=== PATIENT | male | born 1935 | race Caucasian/White ===

== ENCOUNTER 2022-04-20 18:22 | Outpatient (CLI) | payer OTHER | END 2022-04-20 18:23 | disposition critical access hospital (66) | LOC: EMS 18:22 | DX: R53.1 Weakness (principal); R53.83 Other fatigue; R50.9 Fever, unspecified | CPT/HCPCS: A0425; A0427 ==

== ENCOUNTER 2022-04-20 19:16 | Emergency (ER) | payer OTHER ==
[2022-04-20 20:03] LABS: BASOPHILS % (AUTO) 0.5 %; EOSINOPHILS % (AUTO) 0.5 %; HCT - HEMATOCRIT 34.5 % (42.0-52.0); HGB - HEMOGLOBIN 11.5 g/dL (14.0-18.0); LYMPHOCYTES # (AUTO) 0.7 10^3/uL (1.5-3.5); LYMPHOCYTES % (AUTO) 15.2 %; MEAN CORPUSCULAR HEMOGLOBIN 32.6 pg (27.0-31.0); MEAN CORPUSCULAR HGB CONC 33.3 g/dL (32.0-36.0); MEAN CORPUSCULAR VOLUME 97.7 fL (80.0-94.0); MEAN PLATELET VOLUME 10.4 fL (7.4-11.4); MONOCYTES # (AUTO) 0.8 10^3/uL (0.0-1.0); MONOCYTES % (AUTO) 17.9 %; NEUTROPHILS # (AUTO) 2.9 10^3/uL (1.5-6.6); NEUTROPHILS % (AUTO) 65.4 %; PLT - PLATELET COUNT 142 10^3/uL (130-450); RED BLOOD COUNT 3.53 10^6/uL (4.70-6.10); RED CELL DISTRIBUTION WIDTH 13.9 % (12.0-15.0); WHITE BLOOD COUNT 4.4 x10^3/uL (4.8-10.8)
[2022-04-20 20:17] LABS: ALBUMIN 3.4 g/dL (3.2-5.5); ALBUMIN/GLOBULIN RATIO 1.6 (1.0-2.2); BILIRUBIN,TOTAL 0.7 mg/dL (0.2-1.0); CREATININE 1.2 mg/dL (0.6-1.2); POTASSIUM 3.2 mmol/L (3.5-5.0); TOTAL PROTEIN 5.5 g/dL (6.7-8.2)
--- NOTE | 2022-04-20 20:30 | XRAY Report ---
PROCEDURE: Chest 1 View X-Ray INDICATIONS: fever TECHNIQUE: One view of the chest was acquired. COMPARISON: None. FINDINGS: Surgical changes and devices: None. Lungs and pleura: No definite pleural effusions or pneumothorax. The lateral costophrenic angles are incompletely included on the current study. Visualized lungs are clear. Mediastinum: Mediastinal contours appear normal. Heart size is normal. Bones and chest wall: No suspicious bony lesions. Overlying soft tissues appear unremarkable. IMPRESSION: 1. No definite acute cardiopulmonary disease. Reviewed by: Toan Robison MD on 04/20/2022 8:28 PM PDT Approved by: Toan Robison MD on 04/20/2022 8:28 PM PDT Station ID: [id number]
[2022-04-20 20:31] LABS: BILIRUBIN,URINE NEGATIVE (NEGATIVE); GLUCOSE, URINE (UA) NEGATIVE (NEGATIVE); KETONES,URINE (UA) NEGATIVE (NEGATIVE); LEUKOCYTE ESTERASE, URINE NEGATIVE (NEGATIVE); NITRITE,URINE NEGATIVE (NEGATIVE); OCCULT BLOOD,URINE SMALL (NEGATIVE); PROTEIN,URINE NEGATIVE (NEGATIVE); UROBILINOGEN,URINE 0.2 (NORMAL) E.U./dL (NORMAL)
[2022-04-20 20:40] LABS: BACTERIA,URINE None Seen /HPF (None Seen); CLARITY,URINE CLEAR (CLEAR); SQUAMOUS EPITHELIAL CELL,UR NONE SEEN (<= Few); WBC,URINE 0-3 /HPF (0-3)
[2022-04-20] MEDS ORDERED: ACETAMINOPHEN 325 MG TABLET PO STA (20:40)
[2022-04-20] MEDS ORDERED: POTASSIUM CHLORIDE 20 MEQ TABLET PO STA (20:42)
--- NOTE | 2022-04-20 20:54 | ED Physician Documentation ---
History of Present Illness - Stated complaint Stated Complaint: FEVER/CHILLS/FEVER - Chief complaint Chief Complaint: Fever - History obtained from History obtained from: Patient - Additonal information Additional information: Patient is an 86-year-old male with a history of prostate cancer presenting for evaluation of generalized weakness for 2. Patient reports feeling tired and feeling feverish for 2 days.He feels that he has no energy. Per EMS, he was noted to be febrile and he was given a liter of normal saline as well as Motrin. He is not vaccinated for COVID-19. Patient denies known sick contacts. He reports having mild nasal congestion a day or so ago. He denies cough, chest pain, difficulty breathing, abdominal pain, vomiting, diarrhea or dysuria. He is on prednisone and abiraterone for his prostate cancer but is not currently undergoing any treatments.He denies recent travel. Review of Systems Constitutional: reports: Fever Nose: reports: Congestion Throat: denies: Sore throat Cardiac: denies: Chest pain / pressure Respiratory: denies: Dyspnea, Cough GI: denies: Abdominal Pain, Vomiting, Diarrhea : denies: Dysuria Skin: denies: Rash Musculoskeletal: denies: Back pain Neurologic: reports: Generalized weakness. denies: Headache PD PAST MEDICAL HISTORY - Past Medical History Past Medical History: Yes Other Past Medical History: prostate cancer - Past Surgical History Past Surgical History: No - Social History Does the pt smoke?: No Smoking Status: Never smoker PD ED PE NORMAL - General General: Alert and oriented X 3, No acute distress, Well developed/nourished - HEENT HEENT: Atraumatic, Moist mucous membranes, Pharynx benign - Neck Neck: Supple, no meningeal sign - Cardiac Cardiac: RRR, No murmur, Strong equal pulses - Respiratory Respiratory: No respiratory distress, Clear bilaterally - Abdomen Abdomen: Normal bowel sounds, Soft, Non tender, Non distended - Derm Derm: Warm and dry - Extremities Extremities: No edema - Neuro Neuro: Alert and oriented X 3, No motor deficit, Normal speech - Psych Psych: Normal mood Results - Vitals Vitals: Vital Signs - 24 hr 04/20/22 04/20/22 04/20/22 19:24 19:27 19:40 Temperature 39.0 C H 39.0 C H 39.0 C H Heart Rate 68 66 66 Respiratory 18 21 21 Rate Blood Pressure 129/89 H 160/63 H 160/63 H O2 Saturation 95 95 95 04/20/22 04/20/22 04/20/22 20:10 20:30 21:00 Temperature 99.3 C H Heart Rate 63 57 L 66 Respiratory 20 18 16 Rate Blood Pressure 136/68 H 129/63 160/63 H O2 Saturation 93 92 99 04/20/22 04/20/22 21:30 21:46 Temperature 99.3 C H 99.3 C H Heart Rate 66 66 Respiratory 16 16 Rate Blood Pressure 160/63 H 160/63 H O2 Saturation 99 99 Oxygen O2 Source Room air - Labs Labs: Laboratory Tests 04/20/22 04/20/22 04/20/22 19:56 19:56 19:56 WBC 4.4 L RBC 3.53 L Hgb 11.5 L Hct 34.5 L MCV 97.7 H MCH 32.6 H MCHC 33.3 RDW 13.9 Plt Count 142 MPV 10.4 Neut # (Auto) 2.9 Lymph # (Auto) 0.7 L [place] # (Auto) 0.8 Eos # (Auto) 0.0 Baso # (Auto) 0.0 Absolute Nucleated RBC 0.00 Nucleated RBC % 0.0 Sodium 134 L Potassium 3.2 L Chloride 105 Carbon Dioxide 23 Anion Gap 6.0 BUN 19 Creatinine 1.2 Estimated GFR (MDRD) 58 L Glucose 103 H Lactic Acid 0.9 Calcium 8.0 L Total Bilirubin 0.7 AST 24 ALT 20 Alkaline Phosphatase 39 L Total Protein 5.5 L Albumin 3.4 Globulin 2.0 L Albumin/Globulin Ratio 1.6 Urine Color Urine Clarity Urine pH Ur Specific [place] Urine Protein Urine Glucose (UA) Urine Ketones Urine Occult Blood Urine Nitrite Urine Bilirubin Urine Urobilinogen Ur Leukocyte Esterase Urine RBC Urine WBC Ur Squamous Epith Cells Urine Bacteria Urine Culture Comments Nasal Adenovirus (PCR) Nasal B. parapertussis DNA (PCR) Nasal Coronavir 229E PCR Nasal Coronavir HKU1 PCR Nasal Coronavir NL63 PCR Nasal Coronavir OC43 PCR Nasal Enterovir/Rhinovir PCR Nasal Influenza B PCR Nasal Influenza A PCR Nasal Parainfluen 1 PCR Nasal Parainfluen 2 PCR Nasal Parainfluen 3 PCR Nasal Parainfluen 4 PCR Nasal RSV (PCR) Nasal B.pertussis DNA PCR Nasal C.pneumoniae (PCR) [place] Human Metapneumo PCR Nasal M.pneumoniae (PCR) Nasal SARS-CoV-2 (PCR) 04/20/22 04/20/22 20:06 20:25 WBC RBC Hgb Hct MCV MCH MCHC RDW Plt Count MPV Neut # (Auto) Lymph # (Auto) [place] # (Auto) Eos # (Auto) Baso # (Auto) Absolute Nucleated RBC Nucleated RBC % Sodium Potassium Chloride Carbon Dioxide Anion Gap BUN Creatinine Estimated GFR (MDRD) Glucose Lactic Acid Calcium Total Bilirubin AST ALT Alkaline Phosphatase Total Protein Albumin Globulin Albumin/Globulin Ratio Urine Color YELLOW Urine Clarity CLEAR Urine pH 6.0 Ur Specific [place] 1.020 Urine Protein NEGATIVE Urine Glucose (UA) NEGATIVE Urine Ketones NEGATIVE Urine Occult Blood SMALL H Urine Nitrite NEGATIVE Urine Bilirubin NEGATIVE Urine Urobilinogen 0.2 (NORMAL) Ur Leukocyte Esterase NEGATIVE Urine RBC 6-10 H Urine WBC 0-3 Ur Squamous Epith Cells NONE SEEN Urine Bacteria None Seen Urine Culture Comments NOT INDICATED Nasal Adenovirus (PCR) NOT DETECTED Nasal B. parapertussis DNA (PCR) NOT DETECTED Nasal Coronavir 229E PCR NOT DETECTED Nasal Coronavir HKU1 PCR NOT DETECTED Nasal Coronavir NL63 PCR NOT DETECTED Nasal Coronavir OC43 PCR NOT DETECTED Nasal Enterovir/Rhinovir PCR NOT DETECTED Nasal Influenza B PCR NOT DETECTED Nasal Influenza A PCR NOT DETECTED Nasal Parainfluen 1 PCR NOT DETECTED Nasal Parainfluen 2 PCR NOT DETECTED Nasal Parainfluen 3 PCR NOT DETECTED Nasal Parainfluen 4 PCR NOT DETECTED Nasal RSV (PCR) NOT DETECTED Nasal B.pertussis DNA PCR NOT DETECTED Nasal C.pneumoniae (PCR) NOT DETECTED [place] Human Metapneumo PCR NOT DETECTED Nasal M.pneumoniae (PCR) NOT DETECTED Nasal SARS-CoV-2 (PCR) DETECTED A PD MEDICAL DECISION MAKING - ED course Complexity details: reviewed results, re-evaluated patient, d/w patient ED course: Patient presenting for 2 to 3-day history of fever and generalized malaise.Overall his exam is reassuring with normal vital signs. Labs reviewed. Patient is positive for COVID-19. I did review his medications and could not find a contraindication to offer Paxlovid. Discussed risks and benefits of the medication and that it is currently under emergency use authorization. Patient is agreeable to trying it. Patient's oxygenation above 95%. Discussed strict return precautions But patient otherwise appears appropriate for discharge. 2114 I reviewed patient's results with him including diagnosis of COVID-1 9.Patient's oxygenation during my examinations have ranged in the high 90s.He does not appear to be labored With his breathing. I do not think he requires admission at this time. I discussed the emergency use authorization of Paxlovid as a treatment option for COVID-19.I have checked the 2 medications that patient reports he is taking which include prednisone and abiraterone which do not appear to have a contraindication for Paxlovid. Patient does have a GFR of 58 so we will have a renally dosed pack. He is aware of need to quarantine as well as strict return precautions for any worsening symptoms. Departure - Departure Disposition: Home, Self Care Clinical Impression: COVID-19 Condition: Stable Instructions: COVID-19 [facility] Follow-Up: GILDA ELLISON MD [Primary Care Provider] - Comments: You were evaluated for a fever and found to have COVID-19. Fortunately your oxygen levels are normal and your labs are otherwise unremarkable. At this time you are safe to be discharged home. We have discussed starting you on a antiviral medication called Paxlovid. This is under emergency use authorization. It may help lessen the severity of your COVID-19 infection and hopefully prevent need for hospitalization. Please follow CDC quarantine guidelines. If anytime you have any worsening symptoms such as shortness of breath, weakness or other concerns return to the emergency department. Otherwise please use Motrin or Tylenol for fevers and make sure to stay hydrated with plenty of fluids. Discharge Date/Time: 04/20/22 21:46
[2022-04-20 21:04] LABS: CORONAVIRUS 229E-RESP PCR NOT DETECTED; CORONAVIRUS HKU1-RESP PCR NOT DETECTED; CORONAVIRUS NL63-RESP PCR NOT DETECTED; CORONAVIRUS OC43-RESP PCR NOT DETECTED
[2022-04-20 21:05] LABS: B. PARAPERTUSSIS- RESP PCR PAN NOT DETECTED; B. PERTUSSIS- RESP PCR PANEL NOT DETECTED; C. PNEUMONIAE- RESP PCR PANEL NOT DETECTED; HUMAN METAPNEUMOVIRUS NOT DETECTED; INFLUENZA A- RESP PCR PANEL NOT DETECTED; INFLUENZA B - RESP PCR PANEL NOT DETECTED; M. PNEUMONIAE- RESP PCR PANEL NOT DETECTED; PARAINFLUENZA VIRUS 1 NOT DETECTED; PARAINFLUENZA VIRUS 2 NOT DETECTED; PARAINFLUENZA VIRUS 3 NOT DETECTED; PARAINFLUENZA VIRUS 4 NOT DETECTED; RHINOVIRUS/ENTEROVIRUS NOT DETECTED; RSV- RESP PCR PANEL NOT DETECTED; SARS-CoV-2 -RESP PCR PANEL DETECTED
[2022-04-20] MEDS ORDERED: NIRMATRELVIR/RITONAVIR (RENAL) PREPACK PO STA (21:25)
[2022-04-20 21:28] VITALS: BP 160/63
== END 2022-04-20 21:46 | disposition home or self-care (01) ==
LOC: ED 19:16
DX: U07.1 COVID-19 (principal); Z28.310 Unvaccinated for COVID-19; Z28.9 Immunization not carried out for unspecified reason; Z79.899 Other long term (current) drug therapy
CPT/HCPCS: 36415; 71045; 80053; 81001; 83605; 85025; 87040; 87633; 99283; 99284; A9270; J3490; 87086